=== PATIENT | male | born 1960 | race Caucasian/White ===

== ENCOUNTER 2018-08-04 02:15 | Emergency (ER) | payer SELFPAY ==
[2018-08-04 02:21] VITALS: BP 186/93
[2018-08-04] MEDS ORDERED: VALACYCLOVIR HCL 500 MG TABLET PO ONE (02:34)
[2018-08-04] MEDS ORDERED: IBUPROFEN 800 MG TABLET PO ONE (02:40)
[2018-08-04] MEDS ORDERED: HYDROCODONE/ACETAMINOPHEN 5-325 MG (6 TAB/ER DISP) PO PRN (02:44)
--- NOTE | 2018-08-04 02:44 | ER Document Report ---
HPI - HPI Patient complains to provider of: rash Time Seen by Provider: 08/04/18 02:28 Pain Level: 5 Context: Patient is a 58-year-old male presents to the emergency department for left lower back pain and rash. Patient states on he noticed he had an achy feeling in his left lower back. States then there is a evening he noticed a slight rash. States since that the rash has spread and continued to be very painful. Patient states he could not take the pain which is why he presents to the emergency room. Patient denies any history of shingles but states he did have chickenpox as a child. Past medical history: Bladder cancer, lymphoma Medications: None Allergies: No known drug allergies Past Medical History - General Information source: Patient - Social History Smoking Status: Former Smoker Chew tobacco use (# tins/day): Yes Frequency of alcohol use: Rare Family History: CAD, Hyperlipidemia, Hypertension Patient has suicidal ideation: No Patient has homicidal ideation: No - Past Medical History Cardiac Medical History: Reports: Hx Hypertension Denies: Hx Coronary Artery Disease, Hx Heart Attack Pulmonary Medical History: Reports: Hx Pneumonia - "walking" (age 24) Denies: Hx Asthma, Hx Bronchitis, Hx COPD Neurological Medical History: Denies: Hx Cerebrovascular Accident, Hx Seizures Renal/ Medical History: Denies: Hx Peritoneal Dialysis Malignancy Medical History: Reports Hx Bone Cancer Musculoskeletal Medical History: Denies Hx Arthritis, Reports Hx Musculoskeletal Trauma Traumatic Medical History: Reports: Hx Fractures Past Surgical History: Reports: Hx Genitourinary Surgery - bladder cancer - Immunizations Immunizations up to date: No Hx Diphtheria, Pertussis, Tetanus Vaccination: - unsure Vertical Provider Document - CONSTITUTIONAL Agree With Documented VS: Yes Notes: GENERAL: Alert, interacts well. Obvious distress with grimace on his face HEAD: Normocephalic, atraumatic. EYES: Pupils equal, round, and reactive to light. Extraocular movements intact. ENT: Oral mucosa moist, tongue midline. NECK: Full range of motion. Supple. Trachea midline. LUNGS: Clear to auscultation bilaterally, no wheezes, rales, or rhonchi. No respiratory distress. HEART: Regular rate and rhythm. No murmur ABDOMEN: Soft, non-tender. Non-distended. Bowel sounds present in all 4 quadrants. EXTREMITIES: Moves all 4 extremities spontaneously. No edema, normal radial and dorsalis pedis pulses bilaterally. No cyanosis. BACK: no cervical, thoracic, lumbar midline tenderness. No saddle anesthesia, normal distal neurovascular exam. NEUROLOGICAL: Alert and oriented x3. Normal speech. cranial nerves II through XI I grossly intact PSYCH: Normal affect, normal mood. SKIN: Warm, dry, normal turgor. Patient has a vesicular rash noted to the left flank area radiating around to his left lower abdomen. Rash does not past the midline of his spine and does not go into his groin or genitalia. - INFECTION CONTROL TRAVEL OUTSIDE OF THE [place] IN LAST 30 DAYS: No Course - Re-evaluation Re-evalutation: 08/04/18 02:51 Patient's rash is consistent with shingles. Discussed treatment modalities at length with patient. Patient is driving so I do not feel comfortable giving him narcotic pain medication in the emergency department. We will give him a dispense pack to take at home as well as prescriptions for the next couple of days. Patient voices understanding is stable for discharge. Discussed with him his high blood pressure reading here in the emergency department. Discussed close follow-up with [facility] or [facility]. Patient's denying any headache, blurred vision, chest pain - Vital Signs Vital signs: Temp Pulse Resp BP Pulse Ox 98.0 F 86 18 186/93 H 99 08/04/18 02:17 08/04/18 02:17 08/04/18 02:17 08/04/18 02:17 08/04/18 02:17 Discharge - Discharge Clinical Impression: Shingles rash Qualifiers: Herpes zoster complications: without complications Qualified Code(s): B02.9 - Zoster without complications Condition: Stable Disposition: HOME, SELF-CARE Instructions: Shingles ([facility]) Additional Instructions: As we discussed you have been seen and treated in the department for shingles. This is a viral infection that can be very painful. Please take medications as prescribed. Please also follow-up with your primary care provider as your blood pressure reading at today's visit was elevated. This could be due to your pain also could be due to you having high blood pressure. I have provided phone numbers for [facility] in [facility] for close follow-up. He is return to the emergency room for any other concerns. Prescriptions: Oxycodone HCl/Acetaminophen [Oxycodon-Acetaminophen 7.5-325] 1 each PO Q6 PRN #20 tablet PRN Reason: Prednisone [Deltasone 20 mg Tablet] 3 tab PO DAILY 5 Days tablet Valacyclovir HCl [Valacyclovir] 1,000 mg PO TID 7 Days tablet Forms: Elevated Blood Pressure Referrals: GABE LIZARRAGA MD [Primary Care Provider] - Follow up as needed [facility] [Provider Group] - Follow up as needed [facility] [Provider Group] - Follow up as needed
== END 2018-08-04 03:05 | disposition home or self-care (01) ==
LOC: ER 02:15
DX: B02.9 Zoster without complications (principal); M54.5 Low back pain; Z85.51 Personal history of malignant neoplasm of bladder; Z85.72 Personal history of non-Hodgkin lymphomas; Z85.830 Personal history of malignant neoplasm of bone; Z87.891 Personal history of nicotine dependence
CPT/HCPCS: 99283

== ENCOUNTER 2018-08-16 01:02 | Emergency (ER) | payer SELFPAY ==
[2018-08-16 01:09] VITALS: BP 152/96
[2018-08-16] MEDS ORDERED: GABAPENTIN 300 MG CAPSULE PO ONE (01:53)
[2018-08-16] MEDS ORDERED: KETOROLAC TROMETHAMINE 60 MG/2 ML SDV IM ONE (01:55)
[2018-08-16] MEDS ORDERED: HYDROCODONE/ACETAMINOPHEN 5-325 MG (6 TAB/ER DISP) PO PRN (01:55)
--- NOTE | 2018-08-16 01:58 | ER Document Report ---
ED General - General Chief Complaint: Rash Stated Complaint: FLANK PAIN Time Seen by Provider: 08/16/18 01:32 Primary Care Provider: GABE LIZARRAGA MD [Primary Care Provider] - Follow up as needed Notes: Patient is a 58-year-old male with a past medical history of lymphoma, previous bladder cancer, all in remission, diagnosed with herpes zoster roughly 2 weeks ago presents complaining of increasing, burning, severe, constant pain over the area where the lesions were previously. States that all lesions healed and that initially he was feeling somewhat better but over the past 1 week has developed a progressive pain as described above. States he completed all medications as prescribed. Has been taking Aleve with some improvement. Touching the area seems to dramatically worsen the discomfort. Denies any history of similar symptoms in the past. Has not yet followed up with his primary care physician. Denies any fever or constitutional symptoms. No vomiting, diarrhea. TRAVEL OUTSIDE OF THE [place] IN LAST 30 DAYS: No - Related Data Allergies/Adverse Reactions: No Known Drug Allergies Allergy (Verified 08/04/18 02:30) Fire Ants Allergy (Severe, Uncoded 08/04/18 02:30) Red streaks up extremity, swelling, festering Past Medical History - General Information source: Patient - Social History Smoking Status: Current Every Day Smoker Frequency of alcohol use: None Drug Abuse: None Lives with: Spouse/Significant other Family History: CAD, Hyperlipidemia, Hypertension Patient has suicidal ideation: No Patient has homicidal ideation: No - Past Medical History Cardiac Medical History: Reports: Hx Hypertension Denies: Hx Coronary Artery Disease, Hx Heart Attack Pulmonary Medical History: Reports: Hx Pneumonia - "walking" (age 24) Denies: Hx Asthma, Hx Bronchitis, Hx COPD Neurological Medical History: Denies: Hx Cerebrovascular Accident, Hx Seizures Renal/ Medical History: Denies: Hx Peritoneal Dialysis Malignancy Medical History: Reports Hx Bone Cancer Musculoskeletal Medical History: Denies Hx Arthritis, Reports Hx Musculoskeletal Trauma Traumatic Medical History: Reports: Hx Fractures Past Surgical History: Reports: Hx Genitourinary Surgery - bladder cancer - Immunizations Immunizations up to date: No Hx Diphtheria, Pertussis, Tetanus Vaccination: - unsure Review of Systems - Review of Systems Notes: Constitutional: Negative for fever. HENT: Negative for sore throat. Eyes: Negative for visual changes. Cardiovascular: Negative for chest pain. Respiratory: Negative for shortness of breath. Gastrointestinal: Negative for abdominal pain, vomiting or diarrhea. Genitourinary: Negative for dysuria. Musculoskeletal: Positive for pain over the left low back and left lower abdominal region Skin: Positive for healed vesicular rash Neurological: Negative for headaches, weakness or numbness. 10 point ROS negative except as marked above and in HPI. Physical Exam - Vital signs Vitals: Temp Pulse Resp BP Pulse Ox 97.6 F 77 20 152/96 H 99 08/16/18 01:08 08/16/18 01:08 08/16/18 01:08 08/16/18 01:08 08/16/18 01:08 Interpretation: Hypertensive Notes: PHYSICAL EXAMINATION: GENERAL: Well-appearing, well-nourished and in no acute distress. HEAD: Atraumatic, normocephalic. EYES: Pupils equal round and reactive to light, extraocular movements intact, sclera anicteric, conjunctiva are normal. ENT: nares patent, oropharynx clear without exudates. Moist mucous membranes. NECK: Normal range of motion, supple without lymphadenopathy LUNGS: Breath sounds clear to auscultation bilaterally and equal. No wheezes rales or rhonchi. HEART: Regular rate and rhythm without murmurs ABDOMEN: Soft, nontender, normoactive bowel sounds. No guarding, no rebound. No masses appreciated. EXTREMITIES: Normal range of motion, no pitting or edema. No cyanosis. NEUROLOGICAL: No focal neurological deficits. Moves all extremities spontaneously and on command. PSYCH: Normal mood, normal affect. SKIN: Warm, Dry, normal turgor, faint redness,, several scabbed healing lesions but no active vesicular lesions over the left low back and left lower abdomen Course - Re-evaluation Re-evalutation: 08/16/18 01:56 Patient presents with pain increasing for the past 1 week over an area where he did have shingles at the beginning of this month. Patient was treated appropriate with valacyclovir as well as steroids, states that his symptoms were initially getting better but he has not had significant increased pain over the entirety of this area. There are no active lesions although it is clear where he did have herpetic lesions previously. His abdominal exam itself is completely benign without any areas of focal tenderness or rebound or guarding. Patient has not had fever, vomiting, diarrhea and denies focal abdominal pain stating the pain is exclusively over the area where he had lesions previously. Has not seen his primary care doctor regarding today's concerns. 08/16/18 01:58 - Vital Signs Vital signs: Temp Pulse Resp BP Pulse Ox 97.6 F 77 20 152/96 H 99 08/16/18 01:08 08/16/18 01:08 08/16/18 01:08 08/16/18 01:08 08/16/18 01:08 Discharge - Discharge Clinical Impression: Post herpetic neuralgia Lower back pain Qualifiers: Chronicity: acute Back pain laterality: left Sciatica presence: without sciatica Qualified Code(s): M54.5 - Low back pain Condition: Good Disposition: HOME, SELF-CARE Additional Instructions: Your symptoms are most consistent with a phenomenon called postherpetic neuralgia. This is something it causes severe pain over the area where you had your shingles outbreak. You are being started on gabapentin to try to reduce your pain. The dosing of this medication made need to be increased over the next several weeks. You have also been sent home with a [employer] dispense pack to help with pain not controlled by gabapentin. Take naproxen 500 mg twice daily as prescribed. Follow-up very closely with your primary care physician regarding her ongoing pain. Return to the emergency room immediately if you have worsening of your pain, fever of greater than 100.4 F, pass out, or have any other symptoms that are worrisome to you. Prescriptions: Gabapentin [Neurontin 300 mg Capsule] 300 mg PO Q8 #90 cap Naproxen 500 mg PO BID PRN #14 tablet PRN Reason: Referrals: GABE LIZARRAGA MD [Primary Care Provider] - Follow up tomorrow
== END 2018-08-16 02:22 | disposition home or self-care (01) ==
LOC: ER 01:02
DX: B02.29 Other postherpetic nervous system involvement (principal); M54.5 Low back pain; R10.30 Lower abdominal pain, unspecified; I10 Essential (primary) hypertension; F17.200 Nicotine dependence, unspecified, uncomplicated; Z85.72 Personal history of non-Hodgkin lymphomas; Z85.51 Personal history of malignant neoplasm of bladder; Z91.038 Other insect allergy status
CPT/HCPCS: 99282; 96372; J1885

== ENCOUNTER 2018-08-25 03:14 | Emergency (ER) | payer SELFPAY ==
[2018-08-25] MEDS ORDERED: ONDANSETRON HCL INJ/PF 4 MG/2 ML SDV IV ONE (03:37)
[2018-08-25] MEDS ORDERED: NORMAL SALINE 1000 ML 1,000 ML IV ONE (03:37)
[2018-08-25] MEDS ORDERED: HYDROMORPHONE HCL INJ/PF 2 MG/ML AMPULE IV ONE (03:37)
--- NOTE | 2018-08-25 03:52 | ER Document Report ---
ED GI/ - General Chief Complaint: Abdominal Swelling Stated Complaint: SWOLLEN ON LEFT SIDE OF ABDOMEN Time Seen by Provider: 08/25/18 03:28 Primary Care Provider: [facility] [Provider Group] - 09/02/18 Notes: Patient is a 58-year-old male that comes to the emergency department for chief complaint of left-sided abdominal pain. He states that he had the shingles, he had a rash initially when he was seen on 08/04/2018 here, he was treated with prednisone and Valtrex, he was seen again for pain to the area on 08/16/2018, he was diagnosed with possible postherpetic neuralgia and placed on gabapentin 300 mg 3 times a day and naproxen. He states that the same area is still bothering him in today it seems swollen in addition to this. He denies vomiting, fever, he reports normal bowel movements. Pain is worse today as well. Rash is essentially resolved. Past medical history of lymphoma and bladder cancer, these are in remission and he is not on chemotherapy or radiation. TRAVEL OUTSIDE OF THE [place] IN LAST 30 DAYS: No - Related Data Allergies/Adverse Reactions: No Known Drug Allergies Allergy (Verified 08/25/18 04:16) Fire Ants Allergy (Severe, Uncoded 08/04/18 02:30) Red streaks up extremity, swelling, festering Past Medical History - General Information source: Patient - Social History Smoking Status: Never Smoker Frequency of alcohol use: None Drug Abuse: None Lives with: Alone Family History: CAD, Hyperlipidemia, Hypertension - Past Medical History Cardiac Medical History: Reports: Hx Hypertension Denies: Hx Coronary Artery Disease, Hx Heart Attack Pulmonary Medical History: Reports: Hx Pneumonia - "walking" (age 24) Denies: Hx Asthma, Hx Bronchitis, Hx COPD Neurological Medical History: Denies: Hx Cerebrovascular Accident, Hx Seizures Renal/ Medical History: Denies: Hx Peritoneal Dialysis Malignancy Medical History: Reports Hx Bone Cancer Musculoskeletal Medical History: Denies Hx Arthritis, Reports Hx Musculoskeletal Trauma Traumatic Medical History: Reports: Hx Fractures Past Surgical History: Reports: Hx Genitourinary Surgery - bladder cancer - Immunizations Immunizations up to date: Yes Hx Diphtheria, Pertussis, Tetanus Vaccination: Yes - unsure Review of Systems - Review of Systems Constitutional: No symptoms reported EENT: No symptoms reported Cardiovascular: No symptoms reported Respiratory: No symptoms reported Gastrointestinal: See HPI Genitourinary: No symptoms reported Male Genitourinary: No symptoms reported Musculoskeletal: No symptoms reported Skin: See HPI Hematologic/Lymphatic: No symptoms reported Neurological/Psychological: See HPI Physical Exam - Vital signs Vitals: Temp Pulse Resp BP Pulse Ox 97.4 F 73 18 145/97 H 99 08/25/18 03:22 08/25/18 03:08/25/18 03:08/25/18 03:08/25/18 03:22 - Notes Notes: GENERAL: Alert and interacts well, does appear to be uncomfortable but not in severe distress. HEAD: Normocephalic, atraumatic. EYES: Pupils equal, round, and reactive to light. Extraocular movements intact. ENT: Oral mucosa moist, tongue midline. Oropharynx unremarkable. Airway patent. Nares patent, no nasal septal hematoma, TM's intact. NECK: Full range of motion. Supple. Trachea midline. LUNGS: Clear to auscultation bilaterally, no wheezes, rales, or rhonchi. No respiratory distress. HEART: Regular rate and rhythm. No murmur ABDOMEN: Soft, non-tender. Questionable mild distention. bowel sounds present in all 4 quadrants. GENITOURINARY: Deferred EXTREMITIES: Moves all 4 extremities spontaneously. No edema, normal radial and dorsalis pedis pulses bilaterally. No cyanosis. BACK: no cervical, thoracic, lumbar midline tenderness. No saddle anesthesia, normal distal neurovascular exam. Moves all extremities in full range of motion. NEUROLOGICAL: Alert and oriented x3. Normal speech. Cranial nerves II through XII grossly intact. PSYCH: Normal affect, normal mood. SKIN: Warm, dry, normal turgor. No rashes or lesions noted. Course - Re-evaluation Re-evalutation: Patient insists that he feels like he is distended because when he bends over he feels a sharp pain. I tried to explain that this is probably from the nerve pain secondary to the shingles and post herpetic neuralgia, however patient persists so general work-up was performed. CBC, chemistry, urinalysis unremarkable. X-ray nonspecific but without obstruction, free air. I r eevaluated patient's abdomen, he has a very soft and benign abdomen. He does report intermittent sharp pain but I do believe this is nerve pain because it is in the exact distribution of the dermatome in question with a very slight appearance of previous rash with no current ongoing reaction. Patient tolerating p.o. easily, having normal bowel movements. No vomiting or fever. After medications I reevaluated patient, he has no current complaints. Abdomen is again benign. He is requesting to leave. He request something for pain for when the pain becomes severe, he states normally he can take the Aleve, he is taking the gabapentin. He states he does not have a primary care, he was given a referral. I did discuss postherpetic neuralgia, return precautions in regards to his abdomen, patient states understanding and agreement with plan. - Vital Signs Vital signs: Temp Pulse Resp BP Pulse Ox 97.4 F 73 18 149/91 H 97 08/25/18 03:22 08/25/18 03:22 08/25/18 03:22 08/25/18 05:01 08/25/18 05:01 - Laboratory Result Diagrams: 08/25/18 04:06 08/25/18 04:06 Laboratory results interpreted by me: 08/25/18 08/25/18 04:06 04:06 RDW 15.8 H Glucose 124 H Total Protein 6.1 L Discharge - Discharge Clinical Impression: Abdominal pain Qualifiers: Abdominal location: left lower quadrant Qualified Code(s): R10.32 - Left lower quadrant pain Condition: Stable Disposition: HOME, SELF-CARE Additional Instructions: Your evaluation is most consistent with nerve pain after shingles. This is called postherpetic neuralgia. Please follow-up with the primary care referral for additional evaluation and management. Take the Aleve for pain, if needed you can take the provided pain medication for severe pain. I recommend you continue the gabapentin as well. Return if you worsen including severe pain, vomiting, fever, or any other concerning or worsening symptoms. Prescriptions: Morphine Sulfate [Morphine Ir 15 Mg Tablet] 15 mg PO TID PRN #15 tablet PRN Reason: Referrals: [facility] [Provider Group] - 09/02/18
[2018-08-25 04:32] LABS: ABSOLUTE EOSINOPHILS # (AUTO) 0.2 10^3/uL (0.0-0.6); ABSOLUTE LYMPHOCYTES (AUTO) 1.2 10^3/uL (0.5-4.7); ABSOLUTE MONOCYTES (AUTO) 0.5 10^3/uL (0.1-1.4); ABSOLUTE NEUT (AUTO) 3.8 10^3/uL (1.7-8.2); BASOPHILS % (AUTO) 0.4 % (0-2); EOSINOPHILS % (AUTO) 4.1 % (0-6); HEMATOCRIT 44.3 % (37.9-51.0); HEMOGLOBIN 14.7 g/dL (13.5-17.0); LYMPHOCYTES % (AUTO) 20.9 % (13-45); MEAN CORPUSCULAR HEMOGLOBIN 27.9 pg (27.0-33.4); MEAN CORPUSCULAR HGB CONC 33.1 g/dL (32.0-36.0); MEAN CORPUSCULAR VOLUME 84 fl (80-97); MONOCYTES % (AUTO) 8.2 % (3-13); PLATELET COUNT 312 10^3/uL (150-450); RED BLOOD COUNT 5.27 10^6/uL (4.35-5.55); RED CELL DISTRIBUTION WIDTH 15.8 % (11.5-14.0); SEGMENTED NEUTROPHILS % (AUTO) 66.4 % (42-78); TOTAL CELLS COUNTED % (AUTO) 100 %; WHITE BLOOD COUNT 5.7 10^3/uL (4.0-10.5)
[2018-08-25 04:57] LABS: ALANINE AMINOTRANSFERASE 25 U/L (21-72); ALBUMIN 3.9 g/dL (3.5-5.0); ALKALINE PHOSPHATASE 78 U/L (38-126); ANION GAP 11 (5-19); ASPARTATE AMINO TRANSFERASE 19 U/L (17-59); BILIRUBIN,DIRECT 0.3 mg/dL (0.0-0.4); BILIRUBIN,TOTAL 0.6 mg/dL (0.2-1.3); BLOOD UREA NITROGEN 14 mg/dL (7-20); CALCIUM 9.1 mg/dL (8.4-10.2); CARBON DIOXIDE 29 mmol/L (22-30); CHLORIDE 103 mmol/L (98-107); GLUCOSE 124 mg/dL (75-110); POTASSIUM 3.8 mmol/L (3.6-5.0); SODIUM 142.5 mmol/L (137-145); TOTAL PROTEIN 6.1 g/dL (6.3-8.2)
--- NOTE | 2018-08-25 05:24 | RADIOLOGY REPORT (SQ) ---
EXAM DESCRIPTION: XR ABDOMEN SUPINE AND ERECT WITH CHEST (ABD ACUTE SERIES) COMPLETED DATE/TME: 08/25/2018 03:37 CLINICAL HISTORY: 58 years Male, abd pain/swelling Comparison: None. NUMBER OF VIEWS/TECHNIQUE: 3 LIMITATIONS: None. FINDINGS: Intestinal gas pattern is within normal limits. Paucity of bowel gas. Scattered air-fluid levels of the large bowel may indicate fluid retention. No suspicious calcification. Grossly intact skeletal structures. No acute cardiopulmonary findings. Right miniport central line tip at the SVC. IMPRESSION: Colonic fluid which may indicate ileus, malabsorption, or enteritis/toxin.
[2018-08-25 05:30] LABS: APPEARANCE,URINE CLEAR; BILIRUBIN,URINE NEGATIVE (NEGATIVE); COLOR,URINE YELLOW; GLUCOSE, URINE NEGATIVE (NEGATIVE); KETONES,URINE NEGATIVE (NEGATIVE); LEUKOCYTE ESTERASE,URINE NEGATIVE (NEGATIVE); NITRITE,URINE NEGATIVE (NEGATIVE); PROTEIN,URINE NEGATIVE (NEGATIVE); URINE SPECIFIC GRAVITY 1.013; UROBILINOGEN,URINE NEGATIVE mg/dL (<2.0)
[2018-08-25 05:39] VITALS: BP 149/91
== END 2018-08-25 06:16 | disposition home or self-care (01) ==
LOC: ER 03:14
DX: R10.32 Left lower quadrant pain (principal); I10 Essential (primary) hypertension; Z91.038 Other insect allergy status
CPT/HCPCS: 99284; 96361; 96374; 96375; 36415; 85025; 80053; 81001; 74022; J1170; J2405; J7030

== ENCOUNTER 2018-08-26 18:43 | Emergency (ER) | payer SELFPAY ==
[2018-08-26] MEDS ORDERED: HYDROMORPHONE HCL INJ/PF 2 MG/ML AMPULE SUBCUT ONE (21:46)
[2018-08-26] MEDS ORDERED: ONDANSETRON 4 MG TAB.RAPDIS PO ONE (21:46)
--- NOTE | 2018-08-26 21:51 | ER Document Report ---
ED General - General Chief Complaint: Medication Refill Stated Complaint: POSSIBLE RASH Time Seen by Provider: 08/26/18 21:37 Primary Care Provider: GABE LIZARRAGA MD [Primary Care Provider] - Follow up as needed Mode of Arrival: Ambulatory Information source: Patient TRAVEL OUTSIDE OF THE [place] IN LAST 30 DAYS: No - HPI Patient complains to provider of: Abdominal pain Onset: Last week Onset/Duration: Persistent Quality of pain: Burning, Sharp Severity: Moderate Pain Level: 3 Associated symptoms: None Exacerbated by: Movement, Walking, Other - palpation Relieved by: Denies Similar symptoms previously: No Recently seen / treated by doctor: No Notes: 58-year-old gentleman coming in for the third time to the ER for postherpetic neuralgia. He has been treated thus far 2 times prior to this with naproxen, acyclovir, gabapentin. Last time he was here he was given a prescription for morphine IR 15 mg 3 times daily. Apparently the prescription got eaten by the dog. As he has evidence of the left upper corner of the prescription. - Related Data Allergies/Adverse Reactions: No Known Drug Allergies Allergy (Verified 08/25/18 04:16) Fire Ants Allergy (Severe, Uncoded 08/04/18 02:30) Red streaks up extremity, swelling, festering Past Medical History - General Information source: Patient - Social History Smoking Status: Former Smoker Frequency of alcohol use: Rare Drug Abuse: None Family History: Reviewed & Not Pertinent, CAD, Hyperlipidemia, Hypertension Patient has suicidal ideation: No Patient has homicidal ideation: No - Past Medical History Cardiac Medical History: Reports: Hx Hypertension Denies: Hx Coronary Artery Disease, Hx Heart Attack Pulmonary Medical History: Reports: Hx Pneumonia - "walking" (age 24) Denies: Hx Asthma, Hx Bronchitis, Hx COPD Neurological Medical History: Denies: Hx Cerebrovascular Accident, Hx Seizures Renal/ Medical History: Denies: Hx Peritoneal Dialysis Malignancy Medical History: Reports Hx Bone Cancer Musculoskeletal Medical History: Denies Hx Arthritis, Reports Hx Musculoskeletal Trauma Traumatic Medical History: Reports: Hx Fractures Past Surgical History: Reports: Hx Genitourinary Surgery - bladder cancer - Immunizations Immunizations up to date: Yes Hx Diphtheria, Pertussis, Tetanus Vaccination: Yes - unsure Review of Systems - Review of Systems Notes: Constitutional: No fevers. No chills. EENT: No eye redness. No eye pain. No ear pain. No sore throat. Cardiovascular: No chest pain. No palpitations. Respiratory: No cough. No shortness of breath. No respiratory distress. Gastrointestinal: Positive for left kentrell-abdominal pain. No nausea, vomiting, or diarrhea. Genitourinary: Atraumatic. No lesions. No pain. No discharge. Musculoskeletal: Atraumatic. No swelling. No deformities. Skin: Left-sided lower abdominal and flank rash Lymphatic: No swollen lymph nodes. Neurologic: No headache. No syncope. Psychiatric: No suicidal or homicidal ideation. Physical Exam - Vital signs Vitals: Temp Pulse Resp BP Pulse Ox 98.3 F 80 16 135/94 H 99 08/26/18 19:17 08/26/18 19:17 08/26/18 19:17 08/26/18 19:17 08/26/18 19:17 - Notes Notes: General: Well-developed, well-nourished. In no acute distress. Non-toxic appearing. Cardiac: Well-perfused. Regular rate and rhythm. No murmurs, rubs, or gallops. Pulmonary: No respiratory distress. No cyanosis. Bilateral lung fiels are clear to auscultation. Abdominal: Left lower abdomen with mild postherpetic rash. Tender to palpate HEENT: Head is atraumatic. Conjunctivae not reddened. No tearing. PERRL. EOMI. Orbits atraumatic. No periorbital swelling or erythema. Oropharynx is without erythema, swelling, or exudates. Neck: Supple. No adenopathy. No meningismus. Dermatologic: Warm with good turgor. No rash. Atraumatic. Chest: Atraumatic. No chest wall tenderness to palpation. Musculoskeletal: Moves all extremities well. No range of motion deficits. no m uscular or joint tenderness. No paraspinal muscle tenderness. no midline spinal tenderness or step-off. Genitourinary: Examination deferred Neurologic: No gross neurologic deficits. Psychiatric: Normal mood. Course - Re-evaluation Re-evalutation: 08/26/18 21:51 Patient had a prescription for morphine 15 mg IR 3 times daily for quantity 15. Looked up patient's record on the [place] prescription site and patient indeed had not filled this prescription. Will go ahead and rewrite his prescription for the original prescribed. - Vital Signs Vital signs: Temp Pulse Resp BP Pulse Ox 98.3 F 80 16 135/94 H 99 08/26/18 19:17 08/26/18 19:17 08/26/18 19:17 08/26/18 19:17 08/26/18 19:17 Discharge - Discharge Clinical Impression: Postherpetic neuralgia Condition: Good Disposition: HOME, SELF-CARE Instructions: Isis CHOWDHURY) Additional Instructions: Follow-up with your doctor as directed Prescriptions: Morphine Sulfate [Morphine Ir 15 Mg Tablet] 15 mg PO Q8HP PRN 5 Days #15 tablet PRN Reason: Referrals: GABE LIZARRAGA MD [Primary Care Provider] - Follow up as needed
[2018-08-26 22:27] VITALS: BP 135/91
== END 2018-08-26 22:28 | disposition home or self-care (01) ==
LOC: ER 18:43
DX: B02.29 Other postherpetic nervous system involvement (principal); R10.9 Unspecified abdominal pain; I10 Essential (primary) hypertension; Z87.891 Personal history of nicotine dependence; Z91.038 Other insect allergy status
CPT/HCPCS: 99281; 96372; S0119; J1170